=== PATIENT | female | born 1980 | race Caucasian/White ===

== ENCOUNTER 2025-04-21 15:10 | Emergency (ER) | payer MEDICARE, MEDICAID, SELFPAY ==
--- NOTE | ~2025-04-21 | CT_ITS ---
CLINICAL HISTORY: L upper and lower abd ttp, hx diverticulitis CT abdomen and pelvis with contrast Comparison: None provided Findings: No consolidation or effusion. The liver measures 21 cm in length. The spleen measures 16 cm in length. There is no focal liver or splenic nodule. Remaining abdominal organs are unremarkable. There has been a prior cholecystectomy. There is an umbilical and infraumbilical hernia containing fat. There is no bowel herniation. No bowel edema or dilatation. No diverticulitis. Pelvic contents unremarkable. Normal appendix. The bones are intact. IMPRESSION: 1. Hepatosplenomegaly. 2. Umbilical and infraumbilical hernias containing fat. This document has been electronically signed by: Noa Siddiqi MD on 04/21/2025 18:20:20
[2025-04-21 15:30] VITALS: BP 113/66; PULSE 77; RESP 18; TEMP 36.1; O2SAT 98; BMI 49.7
--- NOTE | 2025-04-21 15:32 | ED.GENADULT ---
HPI - General Adult General Chief complaint: Abdominal Pain Stated complaint: left lower quadant pain Time Seen by Provider: 04/21/25 16:05 History of Present Illness ED Provider: Ildefonso Rea MD HPI narrative: 45-year-old female with a history of being overweight, diverticulitis without complication in the past, kidney stones with history of ureteral stent left side she thinks here with several days of left-sided abdominal pain left upper and lower with decreased oral intake. No vomiting denies surgical history aside from cholecystectomy and tubal ligation. No vaginal discharge flank pain or other symptoms Related Data Allergies Allergy/AdvReac Type Severity Reaction Status Date / Time acetaminophen (From VICODIN) Allergy Unknown NAUSEA Verified 04/21/25 16:51 From VICODIN Allergy Unknown NAUSEA Uncoded 04/21/25 16:51 PMFSH Social History Social History Smoked in Last 30 Days: No Use of substances other than those prescribed or required for medical reasons: No Advance Directives: No Advance Directives Information Provided: No Do you have a plan to hurt others: No Plan Patient : No Physical Exam ED Exam Exam: EXAM: Gen: Alert, awake, well appearing, well hydrated. Head: Atraumatic Eyes: Anicteric, Normal conjunctiva. ENT: Moist mucosa, no pallor. ? Neck: Supple. Skin: ?No observable rash or bruising on exposed or examined skin Respiratory: Breathing comfortably, No distress.Clear to auscultation bilaterally, symmetric chest expansion, No wheeze, rales, ronchi. Cardiovascular: Regular rate and rhythm. No murmurs or rub. Well perfused periphery, warm extremities. No edema. ? Abdominal: Moderate left upper and left lower quadrant tenderness. Soft, no objective distension. No palpable masses or obvious organomegaly. ?No guarding, no rebound tenderness or other peritoneal findings. Neuro: Alert. Gross movement of all extremities intact. ? Psych: Calm. Cooperative. MSK: No grossly visible deformity. Vital signs: See flowsheet Vital Signs: Vital Signs - 24 hr 04/21/25 15:30 04/21/25 18:36 04/21/25 20:01 Temperature 97 F 98.7 F 98.7 F Pulse Rate 77 72 72 Respiratory Rate 18 16 16 Blood Pressure 113/66 105/79 105/79 Pulse Oximetry 98 99 99 Oxygen Delivery Method Room Air Room Air BMI result Body Mass Index 49.7 Course Course Course Narrative: RME, this is a rapid medical exam performed by Morteza Kruse please refer to primary provider for complete H&P- 45-year-old female presents for evaluation abdominal pain with associated nausea, no vomiting. She has a history of diverticulosis and feels that she may have diverticulitis. Plan for labs urinalysis, we will defer advanced imaging to primary ER provider Medications Administered Discontinued Medications Generic Name Dose Route Start Last Admin Trade Name Freq PRN Reason Stop Dose Admin Diphenhydramine HCl 12.5 mg 04/21/25 16:24 04/21/25 16:51 Diphenhydramine Hcl 50 Mg/Ml Vial IVPUSH 04/21/25 16:25 12.5 mg ONCE ONE Administration Iohexol 100 ml 04/21/25 17:27 04/21/25 17:27 Iohexol 350 Mg/Ml 100 Ml Infus..Btl IV 04/21/25 17:28 100 ml ONCE ONE Administration Ketorolac Tromethamine 15 mg 04/21/25 16:25 04/21/25 16:51 Ketorolac Tromethamine 15 Mg/Ml Vial IVPUSH 04/21/25 16:26 15 mg ONCE ONE Administration Ondansetron HCl 4 mg 04/21/25 16:24 04/21/25 16:51 Ondansetron Hcl 4 Mg/2 Ml Vial IVPUSH 04/21/25 16:25 4 mg ONCE ONE Administration Medical Decision Making Medical Decision Making [facility] Narrative: Medical Decision Makin-year-old female with history of diverticulitis kidney stones with left upper and lower abdominal tenderness. Afebrile vitals reassuring. Does not look ill or toxic. No rigidity or acute surgical signs. Lab work urinalysis actually quite reassuring. Patient has nausea and vomiting from iodinated contrast this does not appear clinically to be a allergic reaction based on my discussion with her and we will pretreat with Benadryl only for anxiolysis and Zofran for nausea. Plan for CT to evaluate for deep abdominal tenderness CT resulted approximately 19:00 there was no acute pathology I will discuss this with the patient have her follow up with her PCP for re-examination Preliminary Favored Differential Diagnosis: Diverticulitis, kidney stone, colitis, among additional considered etiologies Testing Interpreted Independently: ?See below for details Radiology or Lab testing Results Reviewed: ?See below for details Consults: ?See below for details Independent Historians/External Chart Reviews: ?See below for details Social Determinants of Health Impacting MDM/Planning: ?See below for details Differential Diagnosis liminary Favored Differential Diagnosis: Diverticulitis, kidney stone, colitis, among additional considered etiologies Lab Data MDM Lab Attestation statement: I reviewed the patient's lab results. 04/21/25 15:41 04/21/25 15:41 Labs: Lab Results 04/21/25 Range/Units 15:41 WBC 6.8 (4.8-10.8) X10*3/uL RBC 4.37 (4.20-5.50) X10*6/uL Hgb 11.3 L (12.0-16.0) g/dl Hct 36.0 L (37.0-47.0) % MCV 82.4 (80.0-98.0) fL MCH 25.9 L (27.0-33.0) pg MCHC 31.4 (31.0-35.0) g/dl RDW 17.6 H (11.0-16.0) % Plt Count 244 (160-400) X10*3/uL MPV 10.3 (9.4-12.3) fL Immature Gran % (Auto) 0.4 (0.0-0.4) % Neut % (Auto) 74.6 H (45-73) % Lymph % (Auto) 17.4 L (20-40) % [place] % (Auto) 6.9 (2-11) % Eos % (Auto) 0.3 (0-4) % Baso % (Auto) 0.4 (0-2) % Lymph # (Auto) 1.2 (1.2-4.9) X10*3/uL [place] # (Auto) 0.5 (0.1-1.2) X10*3/uL Eos # (Auto) 0.0 (0.0-0.4) X10*3/uL Baso # (Auto) 0.0 (0.0-0.2) X10*3/uL Abs Immat Gran (auto) 0.03 (0.00-0.03) X10*3/uL Absolute Neuts (auto) 5.1 (2.0-8.3) x10*3/uL Absolute Nucleated RBC 0.000 (0.0-0.012) X10*3/uL Nucleated RBC % (auto) 0.0 (0.0-0.2) /100WBC Sodium 139 (135-145) mmol/L Potassium 3.9 (3.3-5.1) mmol/L Chloride 107 (96-108) mmol/L Carbon Dioxide 25 (22-29) mmol/L Anion Gap 11 L (12-20) BUN 9 (9-16) mg/dL Creatinine 1.00 (0.5-1.4) mg/dL Estim Creat Clear Calc 102.6 Estimated GFR 60 Random Glucose 104 (60-115) mg/dL Calcium 8.9 (8.4-10.2) mg/dL Total Bilirubin 0.6 (0.0-1.0) mg/dL AST 79 H (5-31) U/L ALT 76 H (0-31) U/L Alkaline Phosphatase 141 H (39-117) U/L Total Protein 7.3 (6.5-8.0) g/dL Albumin 3.9 (3.5-5.0) g/dL Lipase 13 (8-78) U/L Urine Color Dark Yellow Urine Appearance Cloudy Urine pH 6.0 (5.0-9.0) Ur Specific [place] >= 1.030 H (1.005-1.025) Urine Protein 30 (1+) H (Neg-Trace) mg/dL Urine Glucose (UA) Negative (Negative) mg/dL Urine Ketones Trace (Negative) mg/dL Urine Blood Negative (Negative) Urine Nitrite Negative (Negative) Ur Leukocyte Esterase Small (1+) H (Negative) Urine RBC 0-2 (0-2) /HPF Urine WBC 6-10 H (0-5) /HPF Ur Squamous Epith Cells >20 (0-2) /HPF Calcium Oxalate Crystal Present Urine Bacteria 4+ (None Seen) Hyaline Casts 0-2 (0-2) /LPF Urine Test NEGATIVE (NEGATIVE) Radiology Impression Discussion of test interpretation with radiology: I have reviewed the radiologist's reading. Discharge Plan Discharge Clinical Impression: Abdominal pain Patient Disposition: Home, Self-Care Instructions: Abdominal Pain (ED) Additional Instructions: DISCHARGE DIAGNOSES: Abdominal pain unclear cause HISTORY OF PRESENTATION: ?Abdominal pain several days EMERGENCY DEPARTMENT COURSE,TESTS, TREATMENTS: While in the ED today you had lab work urinalysis and CT scan without clear explanation of your abdominal pain this is reassuring DISCHARGE MEDICATIONS: ?[We have made no changes to your regular medication regimen] FOLLOW-UP: ?Call your primary or general physician soon as possible to discuss your symptoms, your ED visit and to discuss follow up plans Call your primary doctor you need to be reexamined in a few days INSTRUCTIONS ?& RETURN PRECAUTIONS: If any symptoms change first call your primary physician, if it is after-hours your primary doctors office should have a provider radio control crane operator you can speak with. If the symptoms are severe or very concerning to you then call 911 or return to the ED. Ildefonso Rea MD Emergency Physician [facility] Interventions: ED Discharge Assessment Last Done: 04/21/25 20:01 Discharge Date/Time: 04/21/25 20:02 Print Language: Chinese
[2025-04-21 15:59] LABS: MANUAL DIFF FLAG NO
[2025-04-21 16:01] LABS: Hematocrit 36.0 % (37.0-47.0); Hemoglobin 11.3 g/dl (12.0-16.0); Imm Gran Abs Auto 0.03 X10*3/uL (0.00-0.03); Imm Gran Pct Auto 0.4 % (0.0-0.4); Lymphocytes Absolute Auto 1.2 X10*3/uL (1.2-4.9); Mean Corpuscular HGB Conc 31.4 g/dl (31.0-35.0); Mean Corpuscular Hemoglobin 25.9 pg (27.0-33.0); Mean Corpuscular Volume 82.4 fL (80.0-98.0); NRBC Abs Auto 0.000 X10*3/uL (0.0-0.012); NRBC Pct Auto 0.0 /100WBC (0.0-0.2); Platelet Count 244 X10*3/uL (160-400); Red Blood Count 4.37 X10*6/uL (4.20-5.50); White Blood Count 6.8 X10*3/uL (4.8-10.8)
[2025-04-21 16:03] LABS: Appearance Urine Cloudy; Glucose Urine UA Negative (Negative); PH 6.0 (5.0-9.0); Specific Gravity - Urine >= 1.030 (1.005-1.025); UMIC TRIGGER UACC YES
[2025-04-21 16:16] LABS: Alanine Aminotransferase 76 U/L (0-31); Albumin Level 3.9 g/dL (3.5-5.0); Alkaline Phosphatase 141 U/L (39-117); Anion Gap 11 (12-20); Aspartate Amino Transferase 79 U/L (5-31); Blood Urea Nitrogen 9 mg/dL (9-16); Calcium 8.9 mg/dL (8.4-10.2); Carbon Dioxide 25 mmol/L (22-29); Chloride 107 mmol/L (96-108); Creatinine Clr Calc Pharmacy 102.6; Estimated Glomerular Filt Rate 60; Lipase 13 U/L (8-78); Potassium 3.9 mmol/L (3.3-5.1); Sodium 139 mmol/L (135-145); Total Protein 7.3 g/dL (6.5-8.0)
[2025-04-21 16:20] LABS: UACC Culture Trigger YES
[2025-04-21 17:02] LABS: UPreg QC Valid YES
[2025-04-21] MEDS: iohexoL 350 MG/ML 100 ML INFUS..BTL IV (17:27)
[2025-04-21 18:36] VITALS: BP 105/79; PULSE 72; RESP 16; TEMP 37.1; O2SAT 99
[2025-04-21 20:01] VITALS: BP 105/79; PULSE 72; RESP 16; TEMP 37.1; O2SAT 99
== END 2025-04-21 20:02 | disposition home or self-care (01) ==
PROVIDERS: Physician Assistant; Emergency Provider Emergency Medicine; PCP Internal Medicine
DX: R10.9 Unspecified abdominal pain (principal); Z87.442 Personal history of urinary calculi
CPT/HCPCS: 36415; 74177; 80053; 81001; 81025; 83690; 85025; 87086; 96374; 96375; 99284; 99285; J1200; J1885; J2405; Q9967

== ENCOUNTER → 2025-04-21 16:24 | Outpatient (BNV) | payer MEDICARE, MEDICAID, SELFPAY | PROVIDERS: Emergency Provider Emergency Medicine; PCP Internal Medicine; Visit Provider Radiology Diagnostic Radiology | DX: R16.2 Hepatomegaly with splenomegaly, not elsewhere classified (principal) | CPT/HCPCS: 74177 ==

== ENCOUNTER 2025-08-07 16:55 | Emergency (ER) | payer MEDICARE, MEDICAID, SELFPAY ==
--- NOTE | ~2025-08-07 | XR_ITS ---
CLINICAL HISTORY: CP 2 view chest x-ray Comparison: None provided Findings: Normal size heart. No consolidation, pleural effusion or pneumothorax. No acute fracture. IMPRESSION: 1. No acute findings. This document has been electronically signed by: Jacklyn Munson MD on 08/07/2025 18:29:32
--- NOTE | ~2025-08-07 | CT_ITS ---
CLINICAL HISTORY: L flank pain, hx kidney stones CT abdomen and pelvis without contrast Comparison: CT/SR - CT ABDOMEN PELVIS W IV CON - 04/21/25 17:21 EDT Findings: Limited evaluation without intravenous contrast. No consolidation or effusion. Previous cholecystectomy. No significant biliary ductal dilatation. Liver and spleen are enlarged. No focal hepatic or splenic abnormality on this unenhanced study. Unenhanced pancreas within normal limits. Adrenal glands are normal. No renal or ureteral stones with no hydronephrosis or hydroureter. No perinephric stranding or perinephric fluid. No bowel obstruction, pneumoperitoneum, or pneumatosis. Slight hazy increased attenuation in the bowel mesentery may represent mild mesenteric panniculitis. No free fluid or loculated fluid collection. Pelvic contents unremarkable. Normal appendix. Abdominal aorta is normal in size. Stable umbilical/infraumbilical small fat containing hernia. The bones are intact. IMPRESSION: 1. No renal or ureteral stones. 2. 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 3. Stable hepatosplenomegaly. 4. Stable fat containing umbilical/infraumbilical hernia. This document has been electronically signed by: Jacklyn Munson MD on 08/07/2025 22:53:20
--- NOTE | 2025-08-07 16:58 | ECG_ITS ---
Test Reason : cp Blood Pressure : */* mmHG Vent. Rate : 78 BPM Atrial Rate : 78 BPM P-R Int : 124 ms QRS Dur : 88 ms QT Int : 390 ms P-R-T Axes : 46 25 34 degrees QTcB Int : 444 ms Normal sinus rhythm Normal ECG No previous ECGs available Referred By: Yanet Hood Electronically Signed By: PATRIZIA NOLAND MD
[2025-08-07 17:13] VITALS: BP 161/77; PULSE 77; RESP 20; TEMP 36.3; O2SAT 99; BMI 47.6
--- NOTE | 2025-08-07 17:18 | ED_ITS ---
HPI - Chest Pain General Chief Complaint: General Medical Stated Complaint: chest pain sob Time Seen by Provider: 08/07/25 21:07 Source: patient Mode of arrival: ambulatory Limitations: no limitations History of Present Illness ED Provider: Dr. Amber Hewitt HPI narrative: Patient comes to the emergency room complaining of left back pain that started 2 days ago. Patient states that she bent down to grape picker a water bottle and then when she bent upwards, she started having pain in the middle of the back on the left. Patient denies any falls. Patient states that the pain gets worse with certain movements. Patient has been in bed and whenever she tries to get a bed that is what it hurts the most. Patient denies hematuria or dysuria. However, patient states that she does have history of kidney stones and stents. Earlier today, in triage she mentioned having some chest pain and some shortness of breath. However, when I spoke with the patient, patient states that those symptoms resolved. patient also mentioned earlier today that she had some pain, some numbness in the left arm Without motor dysfunction. Patient states that the discomfort radiates in the left side all the way down to the hip area, not affecting the leg. Patient denies any urinary symptoms, denies incontinence or retention. Patient denies any lower extremity weakness or any issues. Related Data Previous Rx's ?Medication ?Instructions ?Recorded cyclobenzaprine 10 mg tablet 10 mg PO TID PRN muscle s pasm #10 08/07/25 tabs ketorolac 10 mg tablet 10 mg PO TID PRN pain #15 ta bs 08/07/25 Allergies Allergy/AdvReac Type Severity Reaction Status Date / Time acetaminophen (From VICODIN) Allergy Unknown NAUSEA Verified 04/21/25 16:51 Iodinated Contrast Media (IV Allergy Vomiting Verified 08/07/25 17:19 Contrast Dye) From VICODIN Allergy Unknown NAUSEA Uncoded 04/21/25 16:51 Review of Systems 2 Review of Systems: Constitutional : No Weight loss, No Fever, No Chills, No Night Sweats, No Fatigue, No Malaise ENT/Mouth : No Hearing loss, No Ear Pain, No Nasal Congestion, No Sinus Pain, No Hoarseness, No sore throat, No Rhinorrhea, No Swallowing Difficulty Eyes: No Eye Pain, No Swelling, No Redness, No Foreign Body, No Discharge, No Vision Changes Cardiovascular : No Chest Pain, No SOB, No Dyspnea on Exertion, No Orthopnea, No Edema, No Palpitations Respiratory : No Cough, No Sputum, No Wheezing, No Smoke Exposure, No Dyspnea Gastrointestinal : No Nausea, No Vomiting, No Diarrhea, No Constipation, No abdominal Pain, No Hematochezia, No Melena Genitourinary : no irregular bleeding, No Dysuria, No Urinary Frequency, No Hematuria, No Urinary Incontinence, No Urgency, No Flank Pain, No Urinary Flow Changes, No Hesitancy Musculoskeletal : complaining of left back pain for couple of days after picking up a water of bottle, No Myalgias, No Joint Swelling Skin : No Skin Lesions, No rash Neuro : No Weakness, No Numbness, No Paresthesias, No Loss of Consciousness, No Dizziness, No Headache Psych : No Anxiety/Panic, No Depression, No SI/HI/AH/VH, No Social Issues, Heme/Lymph: No Bruising, No Bleeding,No Lymphadenopathy Endocrine : No Polyuria, No Polydipsia, No Temperature Intolerance [facility] Past Medical History Medical History (Updated 08/07/25 @ 23:37 by Amber Hewitt MD) Hypothyroidism Hypertension Social History Social History Smoked in Last 30 Days: No Use of substances other than those prescribed or required for medical reasons: No Advance Directives: No Advance Directives Information Provided: No Do you have a plan to hurt others: No Plan Patient : No Physical Exam 2 Exam: Exam: Appearance: Alert. Oriented X3. No acute distress. Eyes: Pupils equal, round and reactive to light. ENT: Pharynx normal. Neck: Normal inspection. Neck supple. No lymph nodes noted. No crepitus CVS: Normal heart rate and rhythm. Pulses normal. Normal S1 and S2 Respiratory: No respiratory distress. Breath sounds normal. No Wheezing. No rales Abdomen: Soft and nontender. No rigidity. No distention. back: Palpable muscle spasms to the left side of the middle back. No thoracic or lumbar spine tenderness. No palpable step-offs. Skin: Skin warm and dry. Normal skin color. Normal skin turgor. patient has hirsutism Extremities: No lower extremity edema. No Lacerations. No Rash, Normal strength in upper and lower extremities, 5/5, patient is ambulatory patient is ambulatory with normal steady and unassisted gait Neuro: Oriented X 3. No motor deficit. No sensory deficit. Moving all extremities. No slurred speech. CN 2 through 12 grossly intact Psych: calm, cooperative, normal affect Vital Signs: Vital Signs: Last Vital Signs Temp 97.4 F 08/07/25 17:13 Pulse 77 08/07/25 17:13 Resp 20 08/07/25 17:13 BP 161/77 H 08/07/25 17:13 Pulse Ox 99 08/07/25 17:13 O2 Del Method Room Air 08/07/25 17:13 BMI result Body Mass Index 47.6 Course Course Course Narrative: This is an RME: Additional HPI, ROS, PE not included below will be deferred to primary provider. RME assessment and note performed by: Yanet Hood PA-C This is a [id number]-female who presents to the ER with a complaint of diverticulitis, [place], who presents to the ER with complaints of left sided body tingling, numbness. She states that she was bending over to grape picker a water bottle in suddenly felt numbness throughout her entire left side. She also reports some chest pain and shortness Of breath. Plan: labs, EKG, chest x-ray, further ER evaluation needed. Medications Administered Discontinued Medications Generic Name Dose Route Start Last Admin Trade Name Freq PRN Reason Stop Dose Admin Diazepam 2 mg 08/07/25 21:20 08/07/25 21:47 Diazepam 2 Mg Tablet PO 08/07/25 21:21 2 mg ONCE ONE Administration Ketorolac Tromethamine 60 mg 08/07/25 21:20 08/07/25 22:57 Ketorolac Tromethamine 60 Mg/2 Ml Vial IM 08/07/25 21:21 60 mg ONCE ONE Administration Medical Decision Making Medical Decision Making [facility] Narrative: my interpretation of EKG: Normal sinus rhythm, heart rate 78, no ST segment depression or elevation, no T-wave inversion, QTC 444 my interpretation of labs: No significant abnormality in patient's hematology and chemistry, chemistry within normal limits, LFTs normal, troponin less than 2.7 for symptomatic relief, patient was given IM ketorolac and p.o. diazepam. urinalysis Has small amount of leukocyte esterase, WBCs and +4 bacteria. Negative for nitrites. Patient had a similar urinalysis in March of 2025. Microbiology report negative for any bacterial growth. At this time, antibiotics are not indicated. 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 At this time, patient is no longer having chest pain. patient reports ongoing discomfort from the middle of the back that radiate upwards to the middle of the left arm and then words towards the left hip I discussed with the patient that she likely has musculoskeletal pain, muscle spasms. I discussed with the patient that if she has no relief from anti-inflammatories and muscle relaxants, she may need physical therapy, to be arranged through her primary care physician. Patient agrees with plan. Differential Diagnosis Differential Diagnoses: The differential diagnosis associated with the presentation includes ( Musculoskeletal pain, muscle spasms, pyelonephritis, ureterolithiasis) Lab Data MDM Lab Attestation statement: I reviewed the patient's lab results. 08/07/25 17:25 08/07/25 17:25 Labs: Lab Results 08/07/25 08/07/25 Range/Units 17:25 22:22 WBC 8.2 (4.8-10.8) X10*3/uL RBC 4.47 (4.20-5.50) X10*6/uL Hgb 11.8 L (12.0-16.0) g/dl Hct 37.1 (37.0-47.0) % MCV 83.0 (80.0-98.0) fL MCH 26.4 L (27.0-33.0) pg MCHC 31.8 (31.0-35.0) g/dl RDW 17.3 H (11.0-16.0) % Plt Count 234 (160-400) X10*3/uL MPV 10.0 (9.4-12.3) fL Immature Gran % (Auto) 0.2 (0.0-0.4) % Neut % (Auto) 66.9 (45-73) % Lymph % (Auto) 20.6 (20-40) % [place] % (Auto) 7.2 (2-11) % Eos % (Auto) 4.6 H (0-4) % Baso % (Auto) 0.5 (0-2) % Lymph # (Auto) 1.7 (1.2-4.9) X10*3/uL [place] # (Auto) 0.6 (0.1-1.2) X10*3/uL Eos # (Auto) 0.4 (0.0-0.4) X10*3/uL Baso # (Auto) 0.0 (0.0-0.2) X10*3/uL Abs Immat Gran (auto) 0.02 (0.00-0.03) X10*3/uL Absolute Neuts (auto) 5.5 (2.0-8.3) x10*3/uL Absolute Nucleated RBC 0.000 (0.0-0.012) X10*3/uL Nucleated RBC % (auto) 0.0 (0.0-0.2) /100WBC Sodium 142 (135-145) mmol/L Potassium 3.8 (3.3-5.1) mmol/L Chloride 108 (96-108) mmol/L Carbon Dioxide 28 (22-29) mmol/L Anion Gap 10 L (12-20) BUN 9 (9-16) mg/dL Creatinine 0.81 (0.5-1.4) mg/dL Estim Creat Clear Calc 123.3 Estimated GFR > 60 Random Glucose 82 (60-115) mg/dL Calcium 8.6 (8.4-10.2) mg/dL Magnesium 1.9 (1.6-2.6) mg/dL Total Bilirubin 0.4 (0.0-1.0) mg/dL Direct Bilirubin 0.2 (0.0-0.5) mg/dL AST 23 (5-31) U/L ALT 26 (0-31) U/L Alkaline Phosphatase 76 (39-117) U/L Troponin I High Sens < 2.7 (<3.5-17.0) ng/L Total Protein 7.0 (6.5-8.0) g/dL Albumin 4.0 (3.5-5.0) g/dL Urine Color Yellow Urine Appearance Cloudy Urine pH 6.0 (5.0-9.0) Ur Specific [place] 1.025 (1.005-1.025) Urine Protein Trace (Neg-Trace) mg/dL Urine Glucose (UA) Negative (Negative) mg/dL Urine Ketones Trace (Negative) mg/dL Urine Blood Negative (Negative) Urine Nitrite Negative (Negative) Ur Leukocyte Esterase Small (1+) H (Negative) Urine RBC 0-2 (0-2) /HPF Urine WBC 11-20 H (0-5) /HPF Ur Squamous Epith Cells 6-10 (0-2) /HPF Urine Bacteria 4+ (None Seen) Hyaline Casts 3-5 (0-2) /LPF Independent Interpretation I performed an independent interpretation of an: CT Scan Radiology Impression Discussion of test interpretation with radiology: I have reviewed the radiologist's reading. Radiologist Impression: Limited evaluation without intravenous contrast. No consolidation or effusion. Previous cholecystectomy. No significant biliary ductal dilatation. Liver and spleen are enlarged. No focal hepatic or splenic abnormality on this unenhanced study. Unenhanced pancreas within normal limits. Adrenal glands are normal. No renal or ureteral stones with no hydronephrosis or hydroureter. No perinephric stranding or perinephric fluid. No bowel obstruction, pneumoperitoneum, or pneumatosis. Slight hazy increased attenuation in the bowel mesentery may represent mild mesenteric panniculitis. No free fluid or loculated fluid collection. Pelvic contents unremarkable. Normal appendix. Abdominal aorta is normal in size. Stable umbilical/infraumbilical small fat containing hernia. The bones are intact. IMPRESSION: 1. No renal or ureteral stones. 2. 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 3. Stable hepatosplenomegaly. 4. Stable fat containing umbilical/infraumbilical hernia. Discharge Plan Discharge Clinical Impression: Musculoskeletal back pain Patient Disposition: Home, Self-Care Instructions: Musculoskeletal Pain (ED) Additional Instructions: Please follow-up with your primary care physician tomorrow. If you have any worsening or new symptoms, please return to the emergency room or call 911 Prescriptions: New ketorolac 10 mg tablet 10 mg PO TID PRN (Reason: pain) Qty: 15 0RF Rx Instructions: do not use ibuprofen or any other NSAIDs with this medication, only Tylenol and a muscle relaxant cyclobenzaprine 10 mg tablet 10 mg PO TID PRN (Reason: muscle spasm) Qty: 10 0RF Rx Instructions: do not drive after taking this medication, it may make you feel will drowsy Print Language: Georgian
[2025-08-07 17:29] LABS: MANUAL DIFF FLAG NO
[2025-08-07 17:31] LABS: Hematocrit 37.1 % (37.0-47.0); Hemoglobin 11.8 g/dl (12.0-16.0); Imm Gran Abs Auto 0.02 X10*3/uL (0.00-0.03); Imm Gran Pct Auto 0.2 % (0.0-0.4); Lymphocytes Absolute Auto 1.7 X10*3/uL (1.2-4.9); Mean Corpuscular HGB Conc 31.8 g/dl (31.0-35.0); Mean Corpuscular Hemoglobin 26.4 pg (27.0-33.0); Mean Corpuscular Volume 83.0 fL (80.0-98.0); NRBC Abs Auto 0.000 X10*3/uL (0.0-0.012); NRBC Pct Auto 0.0 /100WBC (0.0-0.2); Platelet Count 234 X10*3/uL (160-400); Red Blood Count 4.47 X10*6/uL (4.20-5.50); White Blood Count 8.2 X10*3/uL (4.8-10.8)
[2025-08-07 17:46] LABS: Alanine Aminotransferase 26 U/L (0-31); Albumin Level 4.0 g/dL (3.5-5.0); Alkaline Phosphatase 76 U/L (39-117); Anion Gap 10 (12-20); Aspartate Amino Transferase 23 U/L (5-31); Blood Urea Nitrogen 9 mg/dL (9-16); Calcium 8.6 mg/dL (8.4-10.2); Carbon Dioxide 28 mmol/L (22-29); Chloride 108 mmol/L (96-108); Creatinine Clr Calc Pharmacy 123.3; Estimated Glomerular Filt Rate > 60; Magnesium 1.9 mg/dL (1.6-2.6); Potassium 3.8 mmol/L (3.3-5.1); Sodium 142 mmol/L (135-145); Total Protein 7.0 g/dL (6.5-8.0)
[2025-08-07 17:54] LABS: Troponin-I High Sensitivity < 2.7 ng/L (<3.5-17.0)
[2025-08-07 22:33] LABS: Appearance Urine Cloudy; Glucose Urine UA Negative (Negative); PH 6.0 (5.0-9.0); Specific Gravity - Urine 1.025 (1.005-1.025); UMIC TRIGGER UACC YES
[2025-08-07 23:14] LABS: UACC Culture Trigger YES
[2025-08-08 00:10] VITALS: BP 111/65; PULSE 74; RESP 20; TEMP 36.4; O2SAT 99
--- OUTSIDE RECORDS SUMMARY | 2025-08-08 01:03 | XMS_ITS | Clinical Summary ---
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 throughthe thorax is remarkable for cholecystectomy clips and an abnormal hepaticconfiguration suggesting underlying chronic hepatocellular disease,unchanged. IMPRESSION: Impression: Stable pulmonary nodules being followed. No suspicious developing noduleis seen. Telerad YESICA ([id number]) -------- FINAL REPORT -------- Dictated By: Rachna Hough Dictated Date: 07/22/2025 14:37 ET Assigned Physician: Rachna Hough Reviewed and Electronically Signed By: Rachna Hough Signed Date: 07/22/2025 14:47 ET Workstation ID: [id number] Transcribed By: Self Edit Transcribed Date: 07/22/2025 14:37 ET us Rosy Elizabeth [employer] IMG CT PROCEDURES Final Res ult * Comprehensive metabolic panel (01/15/2025 10:31 AM EDT) Sodium 137 133 - 145 mmol/L LAB CHEMISTRY METHOD 01/15/2025 12:39 PM EDT [facility] Potassium 4.1 3.5 - 5.5 mmol/L LAB CHEMISTRY METHOD 01/15/2025 12:39 PM EDT [facility] Chloride 104 96 - 110 mmol/L LAB CHEMISTRY METHOD 01/15/2025 12:39 PM [facility] CO2 26 21 - 32 mmol/L LAB CHEMISTRY METHOD 01/15/2025 12:39 PM [facility] Anion Gap 7 3 - 11 LAB CHEMISTRY METHOD 01/15/2025 12:39 PM [facility] Glucose 92 70 - 100 mg/dL LAB CHEMISTRY METHOD 01/15/2025 12:39 PM [facility] BUN 10 5 - 25 mg/dL LAB CHEMISTRY METHOD 01/15/2025 12:39 PM [facility] Creatinine 1.02 0.50 - 1.10 mg/dL LAB CHEMISTRY METHOD 01/15/2025 12:39 PM [facility] eGFR 70 >=60 mL/min/1. 73m2 LAB CHEMISTRY METHOD 01/15/2025 12:39 PM [facility] Comment:Calculation based on the Chronic Kidney Disease Epidemiology Collaboration (CKD-EPI) equation refit without adjustment for race. BUN/Creatinine Ratio 9.8 LAB CHEMISTRY METHOD 01/15/2025 12:39 PM [facility] Calcium 8.7 8.5 - 10.5 mg/dL LAB CHEMISTRY METHOD 01/15/2025 12:39 PM [facility] AST (SGOT) 11 10 - 42 unit/L LAB CHEMISTRY METHOD 01/15/2025 12:39 PM [facility] ALT (SGPT) 32 10 - 60 unit/L LAB CHEMISTRY METHOD 01/15/2025 12:39 PM [facility] Alkaline Phosphatase 79 42 - 121 unit/L LAB CHEMISTRY METHOD 01/15/2025 12:39 PM [facility] Total Protein 7.5 6.0 - 8.0 g/dL LAB CHEMISTRY METHOD 01/15/2025 12:39 PM [facility] Albumin 3.7 3.2 - 5.0 g/dL LAB CHEMISTRY METHOD 01/15/2025 12:39 PM EDT [facility] Total Bilirubin 0.5 0.0 - 1.4 mg/dL LAB CHEMISTRY METHOD 01/15/2025 12:39 PM EDT [facility] Blood Venous blood specimen / Unknown Venipuncture / Unknown 01/15/2025 10:31 AM EDT 01/15/2025 10:31 AM EDT Patsy ROBERT LAB BLOOD ORDERABLES Final Resu lt [facility] [address] [place] [address], * Lipid panel with reflex to direct LDL (09/27/2024 10:29 AM EST) Cholesterol 158 0 - 200 mg/dL LAB CHEMISTRY METHOD 09/27/2024 12:39 PM [facility] Triglycerides 110 0 - 150 mg/dL LAB CHEMISTRY METHOD 09/27/2024 12:39 PM [facility] HDL 48 >=40 mg/dL LAB CHEMISTRY METHOD 09/27/2024 12:39 PM [facility] LDL Calculated 88 0 - 100 mg/dL LAB CHEMISTRY METHOD 09/27/2024 12:39 PM [facility] VLDL Cholesterol Riri 22 mg/dL LAB CHEMISTRY METHOD 09/27/2024 12:39 PM [facility] Non HDL Chol. (LDL+VLDL) 110 <145 mg/dL LAB CHEMISTRY METHOD 09/27/2024 12:39 PM [facility] Chol/HDL Ratio 3.3 0.0 - 4.4 LAB CHEMISTRY METHOD 09/27/2024 12:39 PM [facility] Blood Venous blood specimen / Unknown Venipuncture / Unknown 09/27/2024 10:29 AM EST 09/27/2024 10:29 AM EST us Momo ROBERT LAB BLOOD ORDERABLES Final Resu lt [facility] [address] [place] [address], [place] [phone] * SCREENING MAMMOGRAPHY BI 2-VIEW BREAST INC CAD (06/08/2023 7:38 PM EDT) Anatomical Region Laterality Modality Radiographic Susi ging 12/17/2021 4:17 PM EDT Narrative 06/09/2023 6:18 PM EDT This is a summary report. The complete report is available in the patient's medical record. If you cannot access the medical record, please contact the sending organization for a detailed fax or copy. Exam: Screening mammogram Findings: Digital bilateral full-field screening mammography is performed with tomosynthesis and interpreted with the aid of computer-aided detection. This is a baseline exam. Positioning for the exam was challenging due to patient body habitus and images obtained are the best possible. Breast parenchyma is composed of scattered fibroglandular densities. No suspicious mass, architectural distortion, or suspicious calcifications. Impression: No mammographic evidence of malignancy. BI-RADS 1 - negative Procedure Note Nolvia Simon MD - 10/03/2023 This is a summary report. The complete report is available in thepatient's medical record. If you cannot access the medical record, pleasecontact the sending organization for a detailed fax or copy. Exam: Screening mammogram Findings: Digital bilateral full-field screening mammography is performedwith tomosynthesis and interpreted with the aid of computer-aideddetection. This is a baseline exam. Positioning for the exam waschallenging due to patient body habitus and images obtained are the bestpossible. Breast parenchyma is composed of scattered fibroglandular densities. Nosuspicious mass, architectural distortion, or suspicious calcifications. Impression: No mammographic evidence of malignancy. BI-RADS 1 - negative Patsy ROBERT IMG XR PROCEDURES Final Result * Pap Smear (03/22/2017) Pap smear negative, abstracted Historical Provider HEALTH MAINTENANCE Final Result * HIV Screening (11/17/2015) HIV Screening abstracted Historical Provider HEALTH MAINTENANCE Final Result * Hepatitis C Screening (11/17/2015) Hepatitis C Screening abstracted Historical Provider HEALTH MAINTENANCE Final Result from Last 3 Months or Most Recently Relevant to Health Maintenance Insurance MEDICARE [place] - [place] Advance Directives Documents on File Type Date Recorded Patient Preparer Making Department Expl anation Health Care Decision (hx) 02/07/2024 AD HURST DIRECTIVE Health Care Decision (hx) 02/07/2024 AD HURST DIRECTIVE Care Teams [employer] Inspector Relationship Specialty Start Date End Date Charisse Ortiz MD [address] [place] [id number] PCP - General Internal Medicine 06/21/22
--- OUTSIDE RECORDS SUMMARY | 2025-08-08 01:03 | XMS_ITS | Data Portability ---
Author Organization [facility], [facility] Address [address] [place] [address] Assessment No assessment recorded. Plan of Treatment Reminders Order Date Submit Date Provider Last Modified By Organization Details Last Modified Time Details Appointments RECHECK 15 2025 10:30A M Brian Perdomo PA-C Not available Not available Not available Lab None recorded . Referral None recorded . Procedures None recorded . Surgeries None recorded . Imaging None recorded . Medication Orders None recorded . Patient TargetsNo targets recorded. Patient InstructionsNo instructions recorded. Reason for Referral None Reported. Problems Name Problem SNOMED Code Status Onset Date Resolution Date Notes Provider Name and Address Organization Details Recorded Time No complaints [id number] Active Status : 'A'; Not Available [facility] 4 09:23:51 Problem Notes None recorded. Procedures Surgical History Date Name Laterality Status Provider Name and Address Organization Details Recorded Time 4 Knee Kenalog 40 1cc Injection, Bilateral completed Brian Perdomo PA-C [address], [place], [address], [facility] 05/31/2024 13:43:07 4 Knee Kenalog 40 1cc Injection, Bilateral completed Brian Perdomo PA-C [address], [place], [address], [facility] 11/29/2023 14:17:04 Imaging Results None recorded. Procedure Notes None recorded. Medical Equipment None Reported. Allergies Allergen ID Allergen Name Allergen Category Reaction Reaction Severity Criticality Documentation Date Start Date Code Code System Note Provider Name and Address Organization Details Recorded Time 157756 acetamino phen / hydrocodo ne medicatio n Not available Not available Not available 10/31/20232021 33987 2 RxNorm Not Available [facility] 4 16:13:27 611195 morphine sulfate medicatio n Not available Not available Not available 10/31/20232021 16309 RxNorm Not Available [facility] 4 16:13:27 Medications Name Sig Start Date Stop Date Status Note LastModified by Organization Details LastModified Time losartan 50 mg tablet TAKE 1 TABLET BY MOUTH EVERY DAY active Not Available Not Available No t Available fluoxetine 40 mg capsule TAKE 1 CAPSULE BY MOUTH EVERY DAY active Not Available Not Available No t Available amoxicillin 500 mg capsule TAKE 1 CAPSULE BY MOUTH 3 TIMES A DAY UNTIL FINISHED 11/28 completed Not Available Not Available Not Available buspirone 5 mg tablet TAKE 1 TABLET BY MOUTH THREE TIMES A DAY NEEDED FOR ANXIETY active Not Available Not Available No t Available clonidine HCl 0.1 mg tablet TAKE 1 TABLET BY MOUTH THREE TIMES A DAY NEEDED active Not Available Not Available No t Available clindamycin HCl 300 mg capsule TAKE 1 CAPSULE BY MOUTH 3 TIMES A DAY 11/28 completed Not Available Not Available Not Available cefpodoxime 200 mg tablet TAKE 1 TABLET BY MOUTH 2 TIMES PER DAY FOR 5 DAYS MUST ADMINISTE R WITH A MEAL/FOOD active Not Available Not Available No t Available azithromyci n 250 mg tablet TAKE 2 TABLETS BY MOUTH TODAY, THEN TAKE 1 TABLET DAILY FOR 4 DAYS DIRECTED active Not Available Not Available No t Available ibuprofen 800 mg tablet TAKE 1 TABLET BY MOUTH EVERY 8 HOURS NEEDED FOR PAIN active Not Available Not Available No t Available meloxicam 15 mg tablet TAKE 1 TABLET BY MOUTH EVERY DAY 11/28 completed Not Available Not Available Not Available gabapentin 400 mg capsule TAKE 1 CAPSULE BY MOUTH THREE TIMES A DAY active Not Available Not Available No t Available clonazepam 1 mg tablet TAKE 1 TABLET BY MOUTH THREE TIMES A DAY NEEDED active Not Available Not Available No t Available chlorthalid one 25 mg tablet TAKE 1 TABLET BY MOUTH EVERY DAY active Not Available Not Available No t Available carvedilol 3.125 mg tablet TAKE 1 TABLET BY MOUTH TWICE A DAY WITH MEALS active Not Available Not Available No t Available levothyroxi ne 75 mcg tablet TAKE 1 TABLET BY MOUTH EVERY DAY active Not Available Not Available No t Available levothyroxi ne 88 mcg tablet TAKE 1 TABLET BY MOUTH EVERY DAY active Not Available Not Available No t Available hydromorpho ne 2 mg tablet active Not Available Not Available Not Available tamsulosin 0.4 mg capsule TAKE 1 CAPSULE BY MOUTH EVERY DAY active Not Available Not Available No t Available phenazopyri dine 100 mg tablet TAKE 2 TABLET BY MOUTH THREE TIMES A DAY NEEDED FOR CRAMPING active Not Available Not Available No t Available levothyroxi ne 50 mcg tablet TAKE 1 TABLET BY MOUTH EVERY DAY 11/28 completed Not Available Not Available Not Available pantoprazol e 40 mg tablet,armani yed release TAKE 1 TAB BY MOUTH DAILY IN THE MORNING ON EMPTY STOMACH, WAIT 30 MINUTES +THEN EAT TO ACTIVATE MED active Not Available Not Available No t Available Gentle Laxative (bisacodyl) 5 mg tablet,armani yed release TAKE 2 TABLETS BY MOUTH RIGHT BEFORE YOUR FIRST DOSE OF LIQUID PREP. active Not Available Not Available No t Available oxycodone 5 mg capsule TAKE 1 CAPSULE BY MOUTH EVERY 6 HOURS NEEDED FOR PAIN 11/28 completed Not Available Not Available Not Available nitroglycer in 0.4 mg sublingual tablet TAKE 1 TABLET SUBLINGUA LLY EVERY 5 MINUTES NEEDED FOR CHEST PAIN active Not Available Not Available No t Available gabapentin 300 mg capsule TAKE 1 CAPSULE BY MOUTH THREE TIMES A DAY active Not Available Not Available No t Available fluvoxamine 50 mg tablet TAKE 1 TABLET BY MOUTH EVERYDAY AT BEDTIME active Not Available Not Available No t Available lorazepam 1 mg tablet TAKE 1 TABLET BY MOUTH FOUR TIMES A DAY active Not Available Not Available No t Available ibuprofen 600 mg tablet TAKE 1 TABLET BY MOUTH THREE TIMES A DAY NEEDED FOR PAIN . MAX OF 2400MG PER DAY 11/28 completed Not Available Not Available Not Available zolpidem 10 mg tablet TAKE 1 TABLET BY MOUTH EVERYDAY AT BEDTIME active Not Available Not Available No t Available colchicine 0.6 mg tablet TAKE 1 TABLET BY MOUTH EVERY DAY active Not Available Not Available No t Available hydromorpho ne 4 mg tablet active Not Available Not Available Not Available oxybutynin chloride 5 mg tablet TAKE 1 TABLET BY MOUTH THREE TIMES A DAY FOR CRAMPING active Not Available Not Available No t Available ondansetron 4 mg disintegrat ing tablet TAKE 1 TABLET BY MOUTH EVERY 8 HOURS NEEDED FOR NAUSEA AND VOMITING FOR 3 DAYS active Not Available Not Available No t Available cefdinir 300 mg capsule TAKE 1 CAPSULE BY MOUTH EVERY 12 HOURS UNTIL 1 DAY AFTER YOUR SURGERY active Not Available Not Available No t Available colestipol 1 gram tablet TAKE 1 TABLET BY MOUTH TWICE A DAY WITH MEALS active Not Available Not Available No t Available dicyclomine 10 mg capsule TAKE 1 CAPSULE BY MOUTH 3 TIMES A DAY NEEDED FOR ABDOMINAL CRAMPING active Not Available Not Available No t Available amoxicillin 875 mg-potassiu m clavulanate 125 mg tablet TAKE 1 TABLET BY MOUTH TWICE A DAY FOR 7 DAYS active Not Available Not Available No t Available oxycodone 5 mg tablet TAKE 1 TABLET BY MOUTH EVERY 6 HOURS NEEDED FOR SEVERE PAIN (7-10 ON PAIN SCALE) 11/28 completed Not Available Not Available Not Available escitalopra m 20 mg tablet TAKE 1 TABLET BY MOUTH EVERY DAY active Not Available Not Available No t Available melatonin 5 mg tablet TAKE 1 TABLET BY MOUTH EVERYDAY AT BEDTIME active Not Available Not Available No t Available GaviLyte-G 236 gram-22.74 gram-6.74 gram-5.86 gram oral solution MIX DIRECTED + TAKE 8 OZ (240 ML) BY MOUTH ONCE FOR 1 DOSE. FOLLOW DIRECTION S GIVEN BY OFFICE 11/28 completed Not Available Not Available Not Available melatonin 5 mg capsule TAKE 1 CAPSULE BY MOUTH EVERYDAY AT BEDTIME active Not Available Not Available No t Available colchicine 0.6 mg capsule TAKE 1 CAPSULE BY MOUTH TWICE A DAY active Not Available Not Available No t Available Wegovy 2.4 mg/0.75 mL subcutaneou s pen injector INJECT 2.4 MG SUBCUTANE OUSLY ONE TIME PER WEEK active Not Available Not Available No t Available Wegovy 1.7 mg/0.75 mL subcutaneou s pen injector INJECT 1.7 MG UNDER THE SKIN EVERY 7 (SEVEN) DAYS. active Not Available Not Available No t Available Wegovy 1 mg/0.5 mL subcutaneou s pen injector INJECT 1 MG UNDER THE SKIN EVERY 7 (SEVEN) DAYS. active Not Available Not Available No t Available Wegovy 0.25 mg/0.5 mL subcutaneou s pen injector INJECT 0.25MG INTO THE SKIN ONE TIME PER WEEK active Not Available Not Available No t Available Wegovy 0.5 mg/0.5 mL subcutaneou s pen injector INJECT 1 PEN (0.5 MG) SUBCUTANE OUSLY ONCE EVERY 7 DAYS. active Not Available Not Available No t Available Vitals Date Recorded Body height Body mass index (BMI) Body weight Provider Name and Address Organization Details Last Updated DateTime 11/29/2023 167.64 cm 54.9 kg/m2 019070.41 g ANITA CHOWDHURY [facility] 11/29/2023 13:48:41 Date Recorded Body height Body mass index (BMI) Body weight Provider Name and Address Organization Details Last Updated DateTime 05/31/2024 167.64 cm 54.9 kg/m2 578396.41 g Patsy Ramos [facility] 05/31/2024 13:28:46 Social History Question Answer Notes LastModified by [employer] Details LastModified Time Tobacco Smoking Status Never Smoker ANITA CHOWDHURY [facility] 11/29/2023 13:51:17 What Is Your Relationship Status? Single Information not available 11/29/2023 Sex: Unknown Functional Status Question Answer Note LastModified by [employer] Details LastModified Time Do you use any illicit or recreational drugs? No Information not available 11/29/2023 Do you or have you ever used any other forms of tobacco or nicotine? No Information not available 11/29/2023 What is your level of alcohol consumption? None Information not available 11/29/2023 Mental Status None recorded. Family History Nothing Reported. Medical History Condition Response Allergies/Hayfever N Coronary Artery Disease N Anxiety/Depression N Emphysema N Thyroid Problems Y COPD N Pacemaker N Anemia N Kidney/Bladder Problems N Vascular Disease N Gastrointestinal Disease N Heart Attack ([place]) N Diabetes N Autoimmune disease N Bleeding Disorder N Orthotics N Seizures/Epilepsy N Arthritis Y Blood Clot N AIDS/HIV N Congestive Heart Failure (CHF) N Acid Reflux (GERD) N Cancer N Stroke N Asthma N Peripheral Vascular Disease N Sleep Apnea N Hepatitis N Heart Disease N Rheumatoid Arthritis N Pulmonary Embolism N Arrhythmia N Fibromyalgia N Hypertension Y Osteoporosis N Gynecological HistoryNo gynecological history recorded. Obstetrics History GPAL:G 0 P 0 0 0 0 Past Encounters Encounter ID Performer Location Encounter Start Date Encounter Closed Date Diagnosis/Indication Diagnosis SNOMED-CT Code Diagnosis ICD10 Code Diagnosis IMO Codes Diagnosis Note [id number] [facility] [address] [place] [address] 11/29/2023 13:22:32 12/19/2023 16:07:02 Bilateral osteoarthritis of knees [id number] 04059 M17.0 You have been provided with a cortisone injection in order to reduce the pain and inflammati on that you are experienci ng. The injection consists of two medication s. Cortisone (an anti-infla mmatory that will take 48-72 hours to take effect) and Lidocaine (a numbing agent that will last 2-3 hours). Please note that not everyone will have a lasting response following the injection. PATIENT INSTRUCTIO NSOnce the Lidocaine wears off, you may have an increase in your pain. I recommend icing the affected area for 20 minutes 3-4 times per day.It is recommende d that you refrain from any high level activities using the joint or limb that was injected for approximat lázaro 24-48 hours. Normal day-to-day activities are generally not a problem.PO SSIBLE SIDE EFFECTSInd ividuals with dark complexion s may experience some skin discolorat ion locally at the site of the injection. There is the possibilit y of an increase in discomfort within 48 hours following the injection. This is called a f heather . To help minimize the chances of this, please see the post-injec tion instructio ns above.Ther e is a less than 1% chance of an infection. If you notice any signs of infection (redness, warmth, drainage, fever greater than 100 degrees) please call our office or contact us through the portal [facility]. [id number] [facility] [address] [place] [address] 05/31/2024 13:20:16 06/26/2024 11:15:29 Bilateral osteoarthritis of knees [id number] 24888 M17.0 You have been provided with a cortisone injection in order to reduce the pain and inflammati on that you are experienci ng. The injection consists of two medication s. Cortisone (an anti-infla mmatory that will take 48-72 hours to take effect) and Lidocaine (a numbing agent that will last 2-3 hours). Please note that not everyone will have a lasting response following the injection. PATIENT INSTRUCTIO NSOnce the Lidocaine wears off, you may have an increase in your pain. I recommend icing the affected area for 20 minutes 3-4 times per day.It is recommende d that you refrain from any high level activities using the joint or limb that was injected for approximat lázaro 24-48 hours. Normal day-to-day activities are generally not a problem.PO SSIBLE SIDE EFFECTSInd ividuals with dark complexion s may experience some skin discolorat ion locally at the site of the injection. There is the possibilit y of an increase in discomfort within 48 hours following the injection. This is called a ralf romero . To help minimize the chances of this, please see the post-injec tion instructio ns above.Ther e is a less than 1% chance of an infection. If you notice any signs of infection (redness, warmth, drainage, fever greater than 100 degrees) please call our office or contact us through the portal [facility]. Health Concerns Section Related Observation LastModified by Organization Detai ls LastModified Time None Recorded Concern Status LastModified by Organization Details LastModified Time None Recorded Advance Directives Directive None Recorded Payers Insurance Date Sequence Insurance Name Policy Number Policy Seo Covered Member ID Seo Member ID Guarantor Name 07/09/2025 2 [place] [facility] Santos Vernon [id number] Santos Vernon 07/09/2025 1 [place] [employer] Santos Vernon [id number] Santos Vernon Notes Date Note Type Note Provider Name and Address Organization Details Recorded Time 11/29/2023 text/html I am seeing the patient today under the supervision of Dr. Valdovinos was available but who did not see the patient. HPI: Patient comes in for recheck of bilateral knee pain. Has known osteoarthritis in the medial compartment of the knee(s). Been treated conservatively with cortisone injection to this point with 24 weeks relief of symptoms. No new injury or modalities. Past family, medical, social history and review of systems has been reviewed, updated and is located in the patient s chart. Examination:The patient is well appearing and in no apparent distress. Alert and oriented x3. Vital signs per intake sheet. Examination of the bilateral knee reveals no effusion erythema or warmth. Decreased range of motion. Lower extremity varus deformity. Point tender over the medial joint line. Calf soft and nontender. 4+/5 strength of knee flexion extension. Impression: Osteoarthritis Plan: Nature of the diagnosis discussed with the patient today. Both surgical and nonsurgical options were reviewed. This point recommend a repeat cortisone injection. Patient agreed. See Procedure note. Follow-up with us in 3 months for discussion of continued conservative management versus total joint arthroplasty. Brian Perdomo PA-C [address], [place], [address], [facility] 11/29/2023 14:17:41 05/31/2024 text/html I am seeing the patient today under the supervision of Dr. Perales who was available but who did not see the patient. HPI: Patient comes in for recheck of bilateral knee pain. Has known osteoarthritis in the medial compartment of the knee(s). Been treated conservatively with cortisone injection to this point with 20 weeks relief of symptoms. No new injury or modalities. Past family, medical, social history and review of systems has been reviewed, updated and is located in the patient s chart. Examination:The patient is well appearing and in no apparent distress. Alert and oriented x3. Vital signs per intake sheet. Examination of the bilateral knee reveals no effusion erythema or warmth. Decreased range of motion. Lower extremity varus deformity. Point tender over the medial joint line. Calf soft and nontender. 4+/5 strength of knee flexion extension. Impression: Osteoarthritis Plan: Nature of the diagnosis discussed with the patient today. Both surgical and nonsurgical options were reviewed. This point recommend a repeat cortisone injection. Patient agreed. See Procedure note. Follow-up with us in 3 months for discussion of continued conservative management versus total joint arthroplasty. Brian Perdomo PA-C [address], [place], [address], [facility] 05/31/2024 13:43:30 OBGyn Episode No OBEpisode recorded.
== END 2025-08-08 00:22 | disposition home or self-care (01) ==
PROVIDERS: Physician Assistant Medical; Emergency Provider Emergency Medicine; PCP Internal Medicine
DX: M62.830 Muscle spasm of back (principal); M54.89 Other dorsalgia; R06.02 Shortness of breath; Z87.442 Personal history of urinary calculi
CPT/HCPCS: 36415; 71046; 74176; 80048; 80076; 81001; 83735; 84484; 85025; 87086; 87088; 93005; 96372; 99284; J1885

== ENCOUNTER → 2025-08-07 16:58 | Outpatient (BNV) | payer MEDICARE, MEDICAID, SELFPAY | PROVIDERS: Emergency Provider Emergency Medicine; PCP Internal Medicine; Visit Provider Internal Medicine Cardiovascular Disease | DX: R07.9 Chest pain, unspecified (principal) | CPT/HCPCS: 93010 ==

== ENCOUNTER → 2025-08-07 17:19 | Outpatient (BNV) | payer MEDICARE, MEDICAID, SELFPAY | PROVIDERS: PCP Internal Medicine; Visit Provider Specialist | DX: R16.2 Hepatomegaly with splenomegaly, not elsewhere classified (principal); K42.9 Umbilical hernia without obstruction or gangrene | CPT/HCPCS: 71046; 74176 ==